=== PATIENT | female | born 1990 | race African-American/Black ===

== ENCOUNTER 2017-07-29 14:41 | Emergency (ER) | payer OTHER ==
[2017-07-29] MEDS: AUGMENTIN 875 MG TAB PO (15:17)
== END 2017-07-29 15:34 | disposition home or self-care (01) ==
LOC: M ED 14:41
DX: J02.0 Streptococcal pharyngitis (principal); F17.210 Nicotine dependence, cigarettes, uncomplicated
CPT/HCPCS: 87880

== ENCOUNTER 2017-12-22 11:36 | Emergency (ER) | payer OTHER ==
[2017-12-22] MEDS: TETRACAINE 0.5% OPHTH SOLN 4ML OU (13:50)
[2017-12-22 14:59] LABS: ESTIMATED AVERAGE GLUCOSE 85 MG/DL (60-110); HEMOGLOBIN A1c 4.6 %
== END 2017-12-22 14:47 | disposition home or self-care (01) ==
LOC: M ED 11:36
DX: H40.053 Ocular hypertension, bilateral (principal); Z72.0 Tobacco use
CPT/HCPCS: 83036

== ENCOUNTER → 2018-03-08 | Outpatient (REF) | payer OTHER | LOC: M LAB REF 17:21 | DX: J02.9 Acute pharyngitis, unspecified (principal) | CPT/HCPCS: 87081 ==

== ENCOUNTER 2018-09-18 18:57 | Emergency (ER) | payer OTHER ==
[~2018-09-18] VITALS: Ht 165.1 cm; Wt 104.5 kg
[~2018-09-18 18:57] MED LIST: AUGM875T28 PO; TIMOXEOPD OP
[2018-09-18] MEDS ORDERED: TYLE325C PO (19:16)
[2018-09-18] MEDS ORDERED: IBUP200C25 PO (19:16)
[2018-09-18] MEDS ORDERED: METAL LOCK LOOP XX ONE (19:19)
[2018-09-18] MEDS ORDERED: LIDOCAINE W/EPINEPHRINE 1% 20ML VIAL SC ONE (20:45)
[2018-09-18] MEDS ORDERED: BUPIVACAINE HCL 0.5% 10 ML VIAL SC ONE (20:45)
[2018-09-18] MEDS ORDERED: CLEO300C2 PO (20:59)
[2018-09-18] MEDS ORDERED: KETO10TAB PO (20:59)
[2018-09-18] MEDS ORDERED: LIDVISCBTL PO (20:59)
[2018-09-18] MEDS ORDERED: LIDOCAINE VISCOUS 2% SOLN 15ML UDC TOP ONE (21:00)
[2018-09-18 21:06] VITALS: BP 144/78
== END 2018-09-18 21:12 | disposition home or self-care (01) ==
LOC: M ED 18:57
DX: K04.7 Periapical abscess without sinus (principal)

== ENCOUNTER 2018-10-16 16:37 | Emergency (ER) | payer OTHER ==
[~2018-10-16] VITALS: Ht 165.1 cm; Wt 106.2 kg
[~2018-10-16 16:37] MED LIST changes: +CLEO300C2 PO; +IBUP200C25 PO; +KETO10TAB PO; +LIDVISCBTL PO; +TYLE325C PO
[2018-10-16] MEDS ORDERED: KETO10TAB PO (18:29)
[2018-10-16] MEDS ORDERED: CLEO300C2 PO (18:29)
[2018-10-16] MEDS ORDERED: KETOROLAC TROMETHAMINE 10 MG TAB PO ONE (18:30)
[2018-10-16] MEDS ORDERED: CLINDAMYCIN 150 MG CAP PO ONE (18:30)
[2018-10-16 18:34] VITALS: BP 138/92
== END 2018-10-16 18:39 | disposition home or self-care (01) ==
LOC: M ED 16:37
DX: K04.7 Periapical abscess without sinus (principal); F17.210 Nicotine dependence, cigarettes, uncomplicated